=== PATIENT | female | born 1940 | race Caucasian/White ===

== ENCOUNTER 2018-02-04 11:54 | Emergency (ER) | payer MEDICARE, OTHER, MEDICAID, SELFPAY ==
[2018-02-04] VITALS (48 sets, daily range): BP systolic 89–114; BP diastolic 37–85; PULSE 60–92; RESP 15–29; TEMP 36.6; O2SAT 81–100
--- NOTE | 2018-02-04 12:02 | DI.RAD_ITS ---
SYMPTOM/DIAGNOSIS: SOB, ? CHF VS PNEUMONIA AP AND LATERAL CHEST: The heart is not enlarged. The lungs appear generally clear with some COPD and evidence of pulmonary scarring. The examination is unchanged in comparison with the previous chest film of 06/24/16. CONCLUSION: No evidence of acute intrapulmonary process.
--- NOTE | 2018-02-04 12:10 | W.ED.GENAD ---
Discharge Plan Disposition Patient Disposition: HOME Condition: Stable Discharge Details Chief Complaint: SOB Clinical Impression: Dyspnea, History of COPD, On home oxygen therapy Reason For Visit: HALLIE Primary Care Provider: Devorah North ED Provider: Christy Eubanks Home Meds and New Rx's Prescriptions: Continue sennosides [Senokot] 1 TAB tablet 1 tab PO BID RF: 0 acetaminophen [Tylenol] 325 MG tablet 650 mg PO BID RF: 0 olanzapine [Zyprexa] 2.5 MG tablet 5 mg PO BID RF: 0 docusate sodium [Colace] 100 MG capsule 1 cap PO BID RF: 0 lpurkodnoang-An-notq-minerals [Women's Daily Formula] 1 EACH tablet 1 tab PO DAILY RF: 0 escitalopram oxalate [Lexapro] 10 MG tablet 20 mg PO DAILY RF: 0 clonazepam 0.5 MG tablet 0.25 mg PO BID Qty: 0 RF: 0 fluticasone-salmeterol [Advair Diskus] 250-50 mcg/dose Blister With Device 1 puff Inhalation BID RF: 0 prednisone 20 MG tablet 10 mg PO DAILY RF: 0 trazodone 50 mg Tablet 25 mg PO BID RF: 0 valproic acid 250 mg Capsule 250 mg PO BID RF: 0 ergocalciferol (vitamin D2) [Vitamin D2] 50,000 unit Capsule 1 cap PO DIRECTED RF: 0 polyethylene glycol 3350 17 gram/dose Powder 17 g PO DAILY RF: 0 fluticasone-vilanterol [Breo Ellipta] 100-25 mcg/dose Blister With Device 1 puff Inhalation DAILY RF: 0 Discharge Instructions Instructions: Dyspnea (ED) Additional Instructions: Take your regular medications as directed. Follow-up with your primary care doctor in 1 week for reevaluation. Return to the emergency department any worsening or new concerning symptoms. Discharge Data Discharge Date/Time-TO BE ENTERED AT DEPARTURE: 02/04/18 19:48 Discharge Physician: Christy Eubanks Medical Decision Making 77yo F w/ a h/o COPD chronically on 2L home O2 who presents from the [facility] for shortness of breath and hypoxia 88% on 6L NC. Patient has a history of dementia and is a poor historian but was able to states she has had some shortness of breath and cough today. Blood pressure 97/51. Respirations 26. Afebrile. O2 sat 99% on 2 L. Normal heart rate. Patient appears nontoxic and in no distress. Her lungs are clear to auscultation. EKG noted a rate of 91, sinus, questionable nonspecific [address] elevation noted in V5 and V6 which appears different from previous EKG per. She has no complaints of chest pain. Will do a cardiac workup and chest x-ray. 1340 --labs reviewed and noted a white blood cell count of 12.57. Hemoglobin 12.6. Lactate 1.5. Troponin negative. BNP 181. Urinalysis unremarkable. Chest x-ray negative. Case was discussed with daughter who is 2-1/2 hours away and questioning whether she needs to come to see patient at that this point in time. Patient does not appear in any acute respiratory distress and is comfortable with O2 sat 96% on 2 L so daughter will plan to hold on coming at this time. Daughter was informed of workup and if patient continues to remain stable, will discharge back to the [facility]. Will repeat an EKG and obtain a second troponin. 1540 --repeat EKG notes a rate of 72, sinus, right bundle branch block, noting a nonspecific ST elevation still in V5 and V6 but this is somewhat improved compared to previous and appears concave rather than convex and may be more consistent with early re-chirag. Repeat troponin still negative but somewhat up trending to 0.03. Pt denies any chest pain. We will plan on third troponin and repeat EKG in 2 hours. 1830 --third troponin negative <0.02. Blood pressure 97/52. O2 sat 97% on patient's baseline 2 L nasal cannula. Patient denies any chest pain. Will discharge patient back to [facility]. Plan discussed with daughter. HPI General Mode of arrival: EMS. Date/Time Provider Initiated Documentation: 02/04/18 12:01. Limitations to Documentation: other (h/o dementia). Information obtained by: patient and family. HPI Narrative: Patient is a 77-year-old female with a history of dementia, COPD chronically on 2 L of oxygen who presents from the [facility] for shortness of breath today. EMS stated that they were called for a patient filling up with fluid . Nurse had told them her lung sounds appeared bubbly and wet in the lower lungs. EMS had noted her oxygen saturation to be 88% on 6 L NC. Patient is DNR/DNI, but daughter requested that she be brought here for comfort. Patient has a history of dementia and is a poor historian. She admits to shortness of breath and cough recently. She denies any chest pain. Past medical history: COPD, dementia Surgical history: Unknown Social history: Unknown Medications: See list Allergies: Penicillin Related Data Home Medications Medication Instructions Recorded Confirmed acetaminophen [Tylenol] 650 mg PO BID 06/23/16 02/04/18 docusate sodium [Colace] 1 cap PO BID 06/23/16 02/04/18 escitalopram oxalate [Lexapro] 20 mg PO DAILY 06/23/16 02/04/18 gffftkqivody-Rd-elhv-minerals 1 tab PO DAILY 06/23/16 02/04/18 [Women's Daily Formula] olanzapine [Zyprexa] 5 mg PO BID 06/23/16 02/04/18 sennosides [Senokot] 1 tab PO BID 06/23/16 02/04/18 clonazepam 0.25 mg PO BID #0 06/27/16 02/04/18 ergocalciferol (vitamin D2) 1 cap PO DIRECTED 02/04/18 02/04/18 [Vitamin D2] fluticasone-salmeterol [Advair 1 puff INHALATION BID 02/04/18 02/04/18 Diskus] fluticasone-vilanterol [Breo 1 puff INHALATION DAILY 02/04/18 02/04/18 Ellipta] polyethylene glycol 3350 17 g PO DAILY 02/04/18 02/04/18 prednisone 10 mg PO DAILY 02/04/18 02/04/18 trazodone 25 mg PO BID 02/04/18 02/04/18 valproic acid 250 mg PO BID 02/04/18 02/04/18 Previous Rx's Medication Instructions Recorded clonazepam 0.25 mg PO BID #0 06/27/16 Allergies Allergy/AdvReac Type Severity Reaction Status Date / Time Penicillins Allergy Unknown Unverified 02/04/18 12:30 General Stated Complaint: SOB KARLA: 2 Review of Systems Review of Systems Unobtainable due to mental status (poor historian due to mental status - pt is at her baseline) PFSH Social History Smoking/Tobacco Use Status: Unknown Exam Const General: cooperative and no acute distress Orientation: alert and awake HENMT Head: normal to inspection Ears: hearing grossly normal bilaterally, external ears normal and TM's normal bilaterally General nose exam: external nose normal Face and sinus: normal facial exam Mouth: moist mucous membranes abnormal Teeth and gingiva: dentition normal Eyes General: appearance normal, both eyes and all related structures Eyelids: eyelids normal EOM: EOM intact bilaterally Neck Neck: normal visual inspection Lymphatic: no lymphadenopathy noted Chest Chest: normal inspection of the chest Resp Effort & Inspection: normal respiratory effort and able to speak in complete sentences Auscultation: clear to auscultation bilaterally Cardio Rate: regular rate Rhythm: regular rhythm GI Inspection: normal to inspection Palpation: soft, not firm, no guarding, no hepatosplenomegaly, no masses and nontender Auscultation: normal bowel sounds Skin General skin exam: no rashes or lesions noted Neuro General: alert, awake and oriented Patient Orientation: Person Speech: speech normal Motor: muscle tone normal throughout Sensory Exam: no sensory deficits noted Extrem General: normal to inspection, full ROM and normal capillary refill Psych Appearance: grossly normal Speech and Movement: speech and movement normal Affect: normal affect Course Vital Signs Temperature 97.9 F 02/04/18 12:03 Pulse 87 02/04/18 12:03 Respiratory Rate 26 H 02/04/18 12:03 Blood Pressure 97/51 L 02/04/18 12:03 Pulse Oximetry 99 02/04/18 12:03 Temperature 97.9 F 02/04/18 12:03 Temperature Source Skin 02/04/18 12:03 Pulse 87 02/04/18 12:03 Respiratory Rate 26 H 02/04/18 12:03 Blood Pressure 97/51 L 02/04/18 12:03 Pulse Oximetry 99 02/04/18 12:03 Oxygen Delivery Method OxyMask 02/04/18 12:03 Oxygen Flow Rate 6 02/04/18 12:03 Comment 02/04/18 12:03
[2018-02-04 12:29] LABS: Abs Immature Grans 0.05 k/cumm (0.0-0.09); Absolute Eosinophil Count 0.15 k/cumm (0.0-0.7); Absolute Monocyte Count 0.48 k/cumm (0.11-0.7); Basophils % 0.2; Eosinophils % 1.2; HCT 39.7 % (36.0-46.0); HGB 12.6 g/dL (12.0-15.5); Immature Grans % 0.4; Lymphocytes % 7.2; Mean Corp. HGB Concentration 31.7 g/dL (32.0-36.0); Mean Corpuscular Hemoglobin 32.6 pg (27.0-33.0); Mean Corpuscular Volume 102.8 fL (80-95); Mean Platelet Volume 9.7 fL (8.0-11.0); Monocytes % 3.8; Neutrophils % 87.2; Platelet Count 281 x1000/uL (130-400); RBC 3.86 m/cumm (4.00-5.20); White Blood Cell Count 12.57 k/cumm (4.4-10.8)
[2018-02-04 12:30] LABS: Absolute Basophil Count 0.03 k/cumm (0.0-0.2); Absolute Lymphocyte Count 0.91 k/cumm (1.2-3.4); Absolute Neutrophil Count 10.96 k/cumm (1.2-6.7)
[2018-02-04 12:53] LABS: ALT 22 U/L (12-78); AST 18 U/L (15-37); Albumin 3.2 g/dL (3.4-5.0); Alkaline Phosphatase 73 U/L (46-116); Anion Gap 1.2 mmol/L (3-11); BUN 15 mg/dL (7-18); Bilirubin, Total 0.2 mg/dL (0.2-1.0); CO2 36.8 mmol/L (21.0-32.0); CREATININE 0.71 mg/dL (0.55-1.02); Chloride 107 mmol/L (98-107); Glucose 125 mg/dL (70-100); Magnesium 1.9 mg/dL (1.8-2.4); NT-proBNP 181 pg/mL; Sodium 145 mmol/L (136-145); Total Protein 6.2 g/dL (6.4-8.2); Troponin I 0.02 ng/mL (0.00-0.06)
[2018-02-04 13:29] LABS: Lactate-non-spesis 1.5 mmol/L (0.6-1.4)
[2018-02-04 14:19] LABS: Bilirubin Negative (Negative); Blood Trace-intact (Negative); Clarity Clear; Glucose Negative (Negative); Ketones Negative (Negative); Leukocyte Esterase Negative (Negative); Nitrite Negative (Negative); Urobilinogen 0.2 EU/dL (Up TO 0.2)
[2018-02-04 14:31] LABS: Bacteria Few HPF (Negative); Crystals Few Calcium Oxalate HPF (Negative); Epithelial Cells Few HPF (Negative); Mucus Moderate (Negative); Other Cells Few Renal (Negative); RBC 0-2 (0-2)
[2018-02-04 14:32] LABS: C & S Indicated? No; Casts 3-5 Hyaline LPF (Negative)
[2018-02-04 15:52] LABS: Troponin I 0.03 ng/mL (0.00-0.06)
[2018-02-04] MEDS: Normal Saline 250 ML IV (16:00)
[2018-02-04 18:04] LABS: Troponin I 0.02 ng/mL (0.00-0.06)
== END 2018-02-04 19:48 | disposition home or self-care (01) ==
PROVIDERS: Emergency Provider Physician Assistant; PCP Family Medicine
DX: R06.00 Dyspnea, unspecified (principal); J44.9 Chronic obstructive pulmonary disease, unspecified; Z99.81 Dependence on supplemental oxygen
CPT/HCPCS: 36415; 80053; 93005; 96360; 99285; 71046; 81003; 81015; 83605; 83735; 83880; 84484; 85025; 93010